=== PATIENT | female | born 1985 | race Caucasian/White ===

== ENCOUNTER 2017-09-29 08:28 | Emergency (ER) | payer OTHER, BC ==
[~2017-09-29] VITALS: Ht 160 cm; Wt 66.0 kg
[~2017-09-29 08:28] MED LIST: AMOXICILLIN/CL875 MG PO; AMOXICILLIN500 MG PO; AMOXICILLIN875 MG PO; BENZONATATE200 MG PO; KEFLEX500 M1 PO; MEDDOSEPAK PO; SPIRONOLACTONE50 MG PO; TESSALON PERLE100 MG PO; ULTRAM50 M1 PO; ZITHROMAX500 MG PO
[2017-09-29] MEDS ORDERED: MOTRIN800 MG PO (08:43)
[2017-09-29 08:56] VITALS: BP 117/56
== END 2017-09-29 09:27 | disposition home or self-care (01) | DRG 605 ==
LOC: ED 08:28
DX: S00.83XA Contusion of other part of head, initial encounter (principal); V49.49XA Driver injured in collision with other motor vehicles in traffic accident, initial encounter; Y92.410 Unspecified street and highway as the place of occurrence of the external cause